=== PATIENT | male | born 2000 | race Caucasian/White ===

== ENCOUNTER 2025-08-23 15:38 | Inpatient (IN) | payer SELFPAY ==
[~2025-08-23] VITALS: Ht 162.6 cm; Wt 64.9 kg
[2025-08-23 15:40] VITALS: O2SAT 98
[2025-08-23 16:27] LABS: BASOPHILS % 0.5 % (0.0-2.0); EOSINOPHILS % 1.3 % (0.0-5.0); HEMATOCRIT. 49.3 % (42.0-52.0); HEMOGLOBIN. 16.4 g/dL (14.0-18.0); LYMPHOCYTES % 38.0 % (20.0-50.0); MEAN PLATELET VOLUME 7.4 fl (7.4-10.4); MONOCYTES % 5.4 % (2.0-8.0); NEUTROPHILS % 54.8 % (40.0-76.0); PLATELET 303 x1000/uL (130-400); RED BLOOD CELL COUNT 5.36 mill/uL (4.7-6.1); RED CELL DISTRIBUTION WIDTH 13.9 % (11.6-14.6)
[2025-08-23] MEDS: SODIUM CHLORIDE 0.9% 1,000 ML IV ONE (16:35)
[2025-08-23 16:54] LABS: CREATININE 0.7 mg/dL (0.6-1.3); UREA NITROGEN BLOOD 6 mg/dL (9-23)
[2025-08-23 16:55] LABS: ASPARTATE AMINOTRANSFERASE 18 IU/L (<34); PROTEIN TOTAL 7.8 g/dL (6.0-8.3); TROPONIN I HIGH SENSITIVITY < 4 ng/L (3.0-53)
[2025-08-23 16:56] LABS: BILIRUBIN DIRECT 0.1 mg/dL (<=3.0); BILIRUBIN TOTAL 0.4 mg/dL (0.1-1.0)
[2025-08-23 17:06] LABS: ETHANOL BLOOD 300 mg/dL (<10)
[2025-08-23] MEDS ORDERED: DOCUSATE SODIUM 100MG CAPSULE PO PRN (19:00)
[2025-08-23] MEDS ORDERED: CLONIDINE 0.1MG TABLET PO PRN (19:00)
[2025-08-23] MEDS ORDERED: IPRATROPIUM/ALBUTEROL 0.5-3(2.5)MG/3ML NEB HHN PRN (19:00)
[2025-08-23] MEDS ORDERED: ACETAMINOPHEN 325MG TABLET PO PRN ×2 (19:00)
[2025-08-23] MEDS ORDERED: LORAZEPAM 0.5MG TABLET PO PRN (19:00)
[2025-08-23] MEDS ORDERED: ONDANSETRON HCL 4MG/2ML INJ IV PRN (19:00)
[2025-08-23 21:13] LABS: *AMPHETAMINES SCREEN URINE NEGATIVE (NEGATIVE)
[2025-08-23 21:14] LABS: *BARBITURATES SCREEN URINE NEGATIVE (NEGATIVE); *BENZODIAZEPINES SCREEN URINE NEGATIVE (NEGATIVE); *COCAINE SCREEN URINE NEGATIVE (NEGATIVE); CANNABINOID URINE SCREEN NEGATIVE (NEGATIVE); ECSTASY MDMA SCREEN URINE NEGATIVE (NEGATIVE); METHADONE URINE SCREEN NEGATIVE (NEGATIVE); OPIATES URINE SCREEN NEGATIVE (NEGATIVE); PHENCYCLIDINE URINE SCREEN NEGATIVE (NEGATIVE)
[2025-08-23 23:00] VITALS: BP 106/68; PULSE 79; RESP 14; TEMP 36.3624
[2025-08-24] MEDS: CHLORDIAZEPOXIDE 25MG CAPSULE PO SCH (01:46)
[2025-08-24] MEDS: MVI, ADULT NO.1 10 ML, FOLIC ACID 1 MG, THIAMINE HCL 100 MG in SODIUM CHLORIDE 0.9% 1,0... IV ONE (02:22)
[2025-08-24] MEDS: SODIUM CHLORIDE 0.9% 1,000 ML IV SCH (04:05)
[2025-08-24 07:30] LABS: BASOPHILS % 0.5 % (0.0-2.0); EOSINOPHILS % 1.2 % (0.0-5.0); HEMATOCRIT. 44.9 % (42.0-52.0); HEMOGLOBIN. 15.3 g/dL (14.0-18.0); LYMPHOCYTES % 27.7 % (20.0-50.0); MEAN PLATELET VOLUME 7.8 fl (7.4-10.4); MONOCYTES % 4.7 % (2.0-8.0); NEUTROPHILS % 65.9 % (40.0-76.0); PLATELET 280 x1000/uL (130-400); RED BLOOD CELL COUNT 4.85 mill/uL (4.7-6.1); RED CELL DISTRIBUTION WIDTH 14.1 % (11.6-14.6)
[2025-08-24 07:44] LABS: CREATININE 0.8 mg/dL (0.6-1.3)
[2025-08-24 07:45] LABS: PROTEIN TOTAL 6.8 g/dL (6.0-8.3); UREA NITROGEN BLOOD 7 mg/dL (9-23)
[2025-08-24 07:46] LABS: ASPARTATE AMINOTRANSFERASE 15 IU/L (<34)
[2025-08-24 07:47] LABS: BILIRUBIN TOTAL 0.6 mg/dL (0.1-1.0)
[2025-08-24 08:00] VITALS: BP 99/58; PULSE 63; RESP 18; TEMP 36.2; O2SAT 97
[2025-08-24] MEDS: THIAMINE HCL 100MG TABLET PO SCH (08:40)
[2025-08-24] MEDS: MULTIVITAMINS,THER W-MINERALS TABLET PO SCH (08:40)
[2025-08-24 12:00] VITALS: BP 95/52; PULSE 62; RESP 18; TEMP 36.2; O2SAT 97
[2025-08-24] MEDS: FOLIC ACID 1 MG, THIAMINE HCL 100 MG, MVI, ADULT NO.1 10 ML in DEXTROSE 5% WATER 1,000 ML IV ONE (12:31)
[2025-08-24 16:00] VITALS: BP 99/56; PULSE 69; RESP 18; TEMP 36.3; O2SAT 99
[2025-08-24 20:00] VITALS: BP 96/53; PULSE 70; RESP 18; TEMP 35.9; O2SAT 97
[2025-08-25] VITALS: BP 116/66; PULSE 68; RESP 19; TEMP 36.4; O2SAT 97
[2025-08-25 04:00] VITALS: BP 94/55; PULSE 63; RESP 18; TEMP 36.4; O2SAT 97
[2025-08-25 06:37] LABS: BASOPHILS % 0.5 % (0.0-2.0); EOSINOPHILS % 2.6 % (0.0-5.0); HEMATOCRIT. 45.1 % (42.0-52.0); HEMOGLOBIN. 15.3 g/dL (14.0-18.0); LYMPHOCYTES % 34.3 % (20.0-50.0); MEAN PLATELET VOLUME 7.7 fl (7.4-10.4); MONOCYTES % 7.1 % (2.0-8.0); NEUTROPHILS % 55.5 % (40.0-76.0); PLATELET 276 x1000/uL (130-400); RED BLOOD CELL COUNT 4.91 mill/uL (4.7-6.1); RED CELL DISTRIBUTION WIDTH 13.7 % (11.6-14.6)
[2025-08-25 07:08] LABS: CREATININE 0.9 mg/dL (0.6-1.3); TRIGLYCERIDE 83.0 mg/dL (0-150)
[2025-08-25 07:09] LABS: LDL CHOLESTEROL 93.0 mg/dL (5-100); UREA NITROGEN BLOOD 8 mg/dL (9-23)
[2025-08-25 07:11] LABS: FOLIC ACID (FOLATE) SERUM 16.64 ng/mL (>5.38)
[2025-08-25 07:12] LABS: VITAMIN B12 SERUM 744 pg/mL (211-911)
[2025-08-25 08:00] VITALS: BP 103/55; PULSE 64; RESP 18; TEMP 35.6; O2SAT 98
[2025-08-25] MEDS ORDERED: THIA100T72 PO (11:48)
[2025-08-25] MEDS ORDERED: CHLO25CA10 PO (11:48)
[2025-08-25 12:00] VITALS: BP 98/53; PULSE 66; RESP 18; TEMP 35.8; O2SAT 98
[2025-08-25 16:29] VITALS: BP 94/54; PULSE 68; RESP 18; TEMP 97.2
== END 2025-08-25 16:54 | disposition home or self-care (01) | DRG 52 ==
LOC: ER 15:38 → EDBEDREQTM 17:48 → EDBEDREQ 17:48 → 6WST 21:17
PROVIDERS: ADMIT Family Medicine Adult Medicine; ATTEND Family Medicine Adult Medicine
DX: G92.8 Other toxic encephalopathy (principal); F10.129 Alcohol abuse with intoxication, unspecified; F10.139 Alcohol abuse with withdrawal, unspecified; Y90.8 Blood alcohol level of 240 mg/100 ml or more
CPT/HCPCS: 36415; 71045; 80048; 80053; 80061; 80076; 80305; 80320; 82550; 82607; 82746; 83036; 83735; 84443; 84484; 85025; 93005; 96360; 99285; J3411; J3490; J7030; J7070; G0480